=== PATIENT | female | born 2000 | race Two or more races ===

== ENCOUNTER 2024-11-28 15:49 | Emergency (ER) | payer MEDICAID, SELFPAY ==
[2024-11-28 16:43] VITALS: BP 130/83; PULSE 95; RESP 20; TEMP 38.2; O2SAT 100; BMI 44.4
--- NOTE | 2024-11-28 17:01 | EDNOTE_ITS ---
ED Fever RME/HPI General Chief Complaint: Fever Stated Complaint: Fever, sore throat, right ear pain X 2 days Time Seen by Provider: 11/28/24 16:45 Arrival date/time: 11/28/24 15:49 This is a 24-year-old female that comes in with complaints of throat pain and bilateral ear pain. Patient has a fever today. Patient denies any other symptoms. Patient denies any past medical history. Related Data Previous Rx's ?Medication ?Instructions ?Recorded amoxicillin 875 mg-potassium 1 tab PO Q12H #14 tabs clavulanate 125 mg tablet ibuprofen 800 mg tablet 800 mg PO Q6H PRN pain #14 t abs 11/28/24 Allergies Allergy/AdvReac Type Severity Reaction Status Date / Time No Known Allergies Allergy Verified 11/28/24 15:52 Course Orders Category Date Time Status Acetaminophen Tab [Tylenol ES Tab] Med 11/28/24 17:00 Once 1,000 mg PO X1 ONE Amoxicillin/Pot Clav 875 [Augmentin 875] Med 11/28/24 17:01 Once 1 tab PO X1 ONE Ibuprofen Tab [Motrin Tab] Med 11/28/24 17:00 Once 800 mg PO X1 ONE Vital Signs Vital signs: Vital Signs Temperature 100.8 F H 11/28/24 16:43 Pulse Rate 95 11/28/24 16:43 Respiratory Rate 20 11/28/24 16:43 Blood Pressure 130/83 11/28/24 16:43 Pulse Oximetry (%) 100 11/28/24 16:43 Fever MDM Narrative MDM Narrative:: Will treat patient for pharyngitis. Patient given a dose of Tylenol ibuprofen and Augmentin. Patient told to follow-up with primary provider in 1 to 2 days. Come back to the emergency room symptoms change or worsen. Medications / Prescriptions Medication administrations:: Medication Administration History Acetaminophen (Acetaminophen 500 Mg Tablet) 1,000 mg PO X1 ONE Stop: 11/28/24 17:01 Amoxicillin/Clavulanate Potassium (Amoxicillin/Pot Clav 875 Tablet) 1 tab PO X1 ONE Stop: 11/28/24 17:02 Ibuprofen (Ibuprofen Tab 400 Mg Tablet) 800 mg PO X1 ONE Stop: 11/28/24 17:01 Discharge Plan Plan Patient Disposition: HOME (Self Care) Patient condition on transfer: Stable Prescriptions/Referrals Prescriptions/Med Rec: New ibuprofen 800 mg tablet 800 mg PO Q6H PRN (Reason: pain) Qty: 14 0RF amoxicillin-pot clavulanate 875-125 mg tablet 1 tab PO Q12H Qty: 14 0RF Problem List Clinical Impression: Acute bacterial tonsillitis, Fever Patient/Caregiver Discharge Instructions Discharge Activity: activity as tolerated Education Materials: Tonsillitis in Adults Additional Instructions: Follow up with primary provider in 1-2 days. Come back to ED if symptoms change or worsen Print Language: Georgian Stand Alone Forms: [employer] Award Info., Patient Portal Info Letter PA/CHIEF OF SAFETY AND PROTECTION Supervising Physician PA/CHIEF OF SAFETY AND PROTECTION Supervising Physician: konrad
[2024-11-28 17:33] VITALS: TEMP 38.2
[2024-11-28] MEDS: ACETAMINOPHEN 500 MG TABLET 1000 MG PO (17:33)
[2024-11-28] MEDS: AMOXICILLIN/POT CLAV 875 TABLET 1 TAB PO (17:34)
[2024-11-28] MEDS: IBUPROFEN TAB 400 MG TABLET 800 MG PO (17:34)
== END 2024-11-28 17:40 | disposition home or self-care (01) ==
PROVIDERS: Emergency Provider Emergency Medicine
DX: J03.90 Acute tonsillitis, unspecified (principal)
CPT/HCPCS: 99282; A9270

== ENCOUNTER 2025-03-31 18:12 | Emergency (ER) | payer MEDICAID, SELFPAY ==
[2025-03-31 18:50] VITALS: BP 133/87; PULSE 99; RESP 18; TEMP 37.3; O2SAT 98; BMI 38.0
--- NOTE | 2025-03-31 19:00 | XR_ITS ---
Examination: CT abdomen with intravenous contrast CT pelvis with intravenous contrast 2-D coronal reconstructions 2-D sagittal reconstructions Date and time of exam: March 31, 2025, 10:43 p.m INDICATIONS: Abdominal pain blood in the stool today. CTDI: vol (mGy) 15.9 DLP: (mGycm) 820 Technique: Multiple axial sections of the abdomen and pelvis have been obtained. 64 slice high-resolution scanner used. 3 mm axial sections have been obtained, post intravenous injection 60 cc [id number] 2-D sagittal, coronal reconstructions obtained. Low dose protocols were performed. One or more of the following dose reduction techniques were used; automated exposure control, adjustment of the mA and/or KV according to patient size, use of iterative reconstruction technique. Findings: No focal liver or splenic lesions Gallstones No gallbladder wall thickening No pancreatic or adrenal mass No renal or ureteral calculi, no hydronephrosis Aorta normal size No bowel obstruction No pericecal inflammatory change No pelvic mass Urinary bladder intact The osseous structures are intact Normal appendix IMPRESSION: Cholelithiasis, negative for cholecystitis Negative for pancreatitis No renal or ureteral calculi, no hydronephrosis Normal appendix No bowel obstruction diverticulitis or free air
--- NOTE | 2025-03-31 19:01 | EDNOTE_ITS ---
Nausea/Vomit./Diarrhea-RME/HPI General Chief complaint: Abdominal Pain Stated complaint: ABD PAIN, VOMITING, BLOOD IN STOOL, SHAKY Time Seen by Provider: 03/31/25 18:42 Source: patient, RN notes reviewed and old records reviewed Arrival date/time: 03/31/25 18:12 Mode of arrival: ambulatory Limitations: no limitations RME / HPI RME / HPI Narrative: 24yof presents to ED for nausea, vomiting and diarrhea that initiated today. Patient reports minimal bright red blood per rectum after multiple episodes of diarrhea. She c/o LLQ abdominal pain. No fever, flank pain or urinary symptoms reported. 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 Previous Rx's ?Medication ?Instructions ?Recorded amoxicillin 875 mg-potassium 1 tab PO Q12H #14 tabs clavulanate 125 mg tablet ibuprofen 800 mg tablet 800 mg PO Q6H PRN pain #14 t abs 11/28/24 Lactobacillus acidoph-L.bulgaricus 1 tab PO QDAY #30 t abs 04/01/25 1 million cell tablet (Floranex) acetaminophen 500 mg tablet 1,000 mg (2 x 500 mg) PO Q 6H PRN 04/01/25 (Tylenol Extra Strength) pain #30 tabs dicyclomine 20 mg tablet 20 mg PO Q6HR PRN abdominal pain 04/01/25 #30 tabs ibuprofen 600 mg tablet 600 mg PO Q6H PRN pain #30 t abs 04/01/25 ondansetron 4 mg disintegrating 4 mg PO Q6H PRN nausea and 04/01/25 tablet vomiting #10 tabs Allergies Allergy/AdvReac Type Severity Reaction Status Date / Time No Known Allergies Allergy Verified 03/31/25 18:15 Review of Systems Review of Systems Systems Reviewed: All systems reviewed, normal except as documented Constitutional Constitutional: Denies chills and Denies fever(s) Gastrointestinal Gastrointestinal: Reports abdominal pain, Reports diarrhea, Reports hematochezia, Reports nausea and Reports vomiting Genitourinary Genitourinary: Denies dysuria, Denies flank pain and Denies hematuria Past Medical History Past Medical History GASTROINTESTINAL: Positive Obesity Surgical History OTHER SURGICAL HX: Denies past surgical history Social History SMOKING STATUS: Never smoker SUBSTANCE USE: does not use ALCOHOL: Current (Social) ED Exam General Limitations: Present no limitations General appearance: Present alert, in no apparent distress and obese Head Head exam: Present atraumatic and normocephalic Eye Eye exam: Present normal appearance, PERRL and EOMI ENT ENT exam: Present mucous membranes dry (Mild) Neck Neck exam: Present normal inspection and full ROM Chest Chest inspection: Present normal inspection and symmetric chest wall rise Respiratory Respiratory exam: Present normal lung sounds bilaterally; Absent respiratory distress Cardiovascular Cardiovascular exam: Present regular rate and normal rhythm Abdominal Exam Abdominal exam: Present soft and tenderness (LLQ, mild); Absent distention, guarding or rebound Extremities Exam Extremities exam: Present normal inspection and full ROM Back Exam Back exam: Absent CVA tenderness (R) or CVA tenderness (L) Neurological Exam Neurological exam: Present alert and oriented X3 Psychiatric Psychiatric exam: Present normal affect and normal mood Skin Skin exam: Present warm, dry, intact and normal color Course Quality Measures none Orders Category Date Time Status CT Screening NOW Care 03/31/25 19:01 Completed IV [Insert IV] NOW Care 03/31/25 21:[address] abdomen pelvis w con Stat Exams 03/31/25 19:00 Completed CBC Stat Lab 03/31/25 19:36 Completed CMP [Comprehensive Metabolic Panel] Stat Lab 03/31/25 19:36 Completed HCG Qualitative,Urine Stat Lab 03/31/25 20:40 Completed Lipase Stat Lab 03/31/25 19:36 Completed UA [Urinalysis] Stat Lab 03/31/25 20:40 Completed HYDROcodone*/APAP 7.5/325 [[place] 7.5/325] Med 03/31/25 19:00 Discontinued 1 tab PO X1 ONE Ondansetron Odt [Zofran Odt] Med 03/31/25 19:00 Discontinued 4 mg PO X1 ONE Vital Signs Vital signs: Vital Signs Temperature 99.1 F 03/31/25 18:50 Pulse Rate 99 03/31/25 18:50 Respiratory Rate 18 03/31/25 18:50 Blood Pressure 133/87 H 03/31/25 18:50 Pulse Oximetry (%) 98 03/31/25 18:50 Oxygen Delivery Method Room Air 03/31/25 18:50 Nausea/Vomiting/Diarrhea MDM Narrative MDM Narrative:: 24yof presents to ED for nausea, vomiting and diarrhea that initiated today. Patient reports minimal bright red blood per rectum after multiple episodes of diarrhea. She c/o LLQ abdominal pain. No fever, flank pain or urinary symptoms reported. 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 She is feeling better, symptoms improved, tolerating po. CT negative for acute intra-abdominal pathology. No evidence of diverticulitis, bowel perf, appendicitis, pyelonephritis, colitis. Incidental finding of cholelithiasis wo cholecystitis, however, patient denies RUQ pain. Patient is non-toxic appearing, afebrile, vitals are stable. Non-surgical abdomen on exam. In setting of leukocytosis (wbc 24) with left shift, recommended return to ED within next 12-24 hours for repeat CBC and exam. Leukocytosis may be 2/2 acute stress response (recent n/v/d) and dehydration. Patient is comfortable with plan of care and DC home. Encouraged adequate fluids, symptomatic treatment prn. Stable for discharge, RTED precautions given Patient data External records reviewed:: [facility] previous records (11/28/2024 ED visit for tonsillitis) Clinical information provided by:: patient Social determinants that could affect healthcare access:: other (specify) (Poor access to healthcare) Patient has the following chronic illnesses:: Obesity How is presenting disease/condition affected by chronic disease/condition?: uneffected by Evaluation data The following diagnostics were reviewed and interpreted by me:: lab results and radiology exam(s) Lab and/or radiology exams considered but not ordered:: None Interpretation Summary: Leukocytosis with left shift No anemia No UGO No UTI CT abd/pelvis: IMPRESSION: Cholelithiasis, negative for cholecystitis Negative for pancreatitis No renal or ureteral calculi, no hydronephrosis Normal appendix No bowel obstruction diverticulitis or free air Dictated By: Angel Ho MD Medications / Prescriptions Medications / Prescriptions considered but not ordered:: No antibiotics recommended at this time Medication administrations:: Medication Administration History Discontinued Medications Hydrocodone Bitart/Acetaminophen (Hydrocodone/[place] 7.5/325 Tablet) 1 tab PO X1 ONE Stop: 03/31/25 19:01 Last Admin: 03/31/25 20:25 Dose: 1 tab Documented By: Ondansetron HCl (Ondansetron Odt 4 Mg Tabrap) 4 mg PO X1 ONE; Protocol Stop: 03/31/25 19:01 Last Admin: 03/31/25 20:25 Dose: 4 mg Documented By: Above medications administered in ED Consultations Consultation(s) initiated? (list below): No Diagnosis Nausea Differential Diagnosis: other (Gastroenteritis, food poisoning, colitis, diverticulitis, appendicitis, UTI, pyelonephritis, renal colic) Most likely diagnosis given after review of the tests above:: Gastroenteritis Admission Indicated Admission indicated?: not indicated Admission Request Was there a request for admission?: No Disposition Plan Disposition Plan: Discharge Discharge Attestation Discharge Attestation: The patient and all family members were given an opportunity to ask questions and understood the discharge instructions. Discharge instructions specifically effects, indications for sooner follow up or return to the emergency department, and the expected course of current diagnosis. Patient condition: Stable Discharge Plan Plan Patient Disposition: HOME (Self Care) Patient condition on transfer: Stable Prescriptions/Referrals Prescriptions/Med Rec: New ibuprofen 600 mg tablet 600 mg PO Q6H PRN (Reason: pain) Qty: 30 0RF acetaminophen [Tylenol Extra Strength] 500 mg tablet 1,000 mg PO Q6H PRN (Reason: pain) Qty: 30 0RF dicyclomine 20 mg tablet 20 mg PO Q6HR PRN (Reason: abdominal pain) Qty: 30 0RF ondansetron 4 mg tablet,disintegrating 4 mg PO Q6H PRN (Reason: nausea and vomiting) Qty: 10 0RF Lactobacillus acidoph-L.bulgar [Floranex] 1 million cell tablet 1 tab PO QDAY Qty: 30 0RF No Action ibuprofen 800 mg tablet 800 mg PO Q6H PRN (Reason: pain) Qty: 14 0RF amoxicillin-pot clavulanate 875-125 mg tablet 1 tab PO Q12H Qty: 14 0RF Referrals: No Primary/Family,Physician [Primary Care Provider] - In 1 week Problem List Clinical Impression: Nausea vomiting and diarrhea, Left lower quadrant abdominal pain Patient/Caregiver Discharge Instructions Education Materials: Self-Care for Vomiting and Diarrhea Additional Instructions: Make sure to stay hydrated and drink plenty of fluids. Return to ED in 12-24 hours for reevaluation if symptoms persist or worsen Print Language: Belarusian Stand Alone Forms: Ana Award Info., Patient Portal Info Letter PA/BATTERBOARD SETTER Supervising Physician PA/BATTERBOARD SETTER Supervising Physician: Jordan
[2025-03-31 20:09] LABS: Basophils # (Auto) 0.1 Thou/mm3 (0.0-0.2); Basophils % (Auto) 0 % (0-2.5); Eosinophils # (Auto) 0.1 Thou/mm3 (0.0-0.5); Eosinophils % (Auto) 0 % (0-10); Hematocrit 35.7 % (36.0-46.0); Hemoglobin 12.3 g/dL (12.0-16.0); Immature Granulocytes Auto 0.19 Thou/mm3 (0.00-0.00); Lymphocytes # (Auto) 0.5 Thou/mm3 (1.0-4.8); Lymphocytes % (Auto) 2 % (10-50); Mean Corpuscular HGB Conc 34.5 g/dl (31.0-37.0); Mean Corpuscular Hemoglobin 28.8 pg (25.0-35.0); Mean Corpuscular Volume 84 fL (80-100); Monocytes # (Auto) 1.1 Thou/mm3 (0.0-0.8); Monocytes % (Auto) 5 % (0-12); Neutrophils # (Auto) 22.5 Thou/mm3 (1.8-7.7); Neutrophils % (Auto) 92 % (37-80); Nucleated Red Blood Cell # 0.00 Thou/mm3 (0.00-0.00); Nucleated Red Blood Cell % 0 /100 WBC (0); Platelet Count 319 Thou/mm3 (140-440); RDW Standard Deviation 39.2 fL (36.4-46.3); Red Blood Count 4.27 Miln/mm3 (4.00-5.20); White Blood Count 24.5 Thou/mm3 (3.6-11.0)
[2025-03-31] MEDS: ONDANSETRON ODT 4 MG TABRAP PO (20:25)
[2025-03-31] MEDS: HYDROcodone/APAP 7.5/325 TABLET 1 TAB PO (20:25)
[2025-03-31 20:38] LABS: Alanine Aminotransferase 31 U/L (10-49); Albumin, Serum 4.6 gm/dL (3.5-5.0); Albumin/Globulin Ratio 1.8 (1.2-2.2); Alkaline Phosphatase 80 U/L (46-116); Anion Gap 10 (7-16); Aspartate Amino Transferase 26 U/L (0-34); BUN/Creatinine Ratio 10 Ratio (12-20); Bilirubin,Total 1.0 mg/dL (0.3-1.2); Blood Urea Nitrogen 6 mg/dL (9-23); Calcium 9.3 mg/dL (8.3-10.6); Calcium (Corrected) 9.3 mg/dL (8.5-10.1); Carbon Dioxide 23.0 mMol/L (20.0-31.0); Chloride 106 mMol/L (98-107); Creatinine (Component) 0.6 mg/dL (0.6-1.3); Estimated Creatinine Clearance 158.0 mL/min (>60); Globulin 2.5 gm/dL (2.3-3.5); Glucose 96 mg/dL (74-106); Lipase 23 U/L (12-53); Osmolality,Calculated 275 (275-295); Potassium 3.5 mMol/L (3.4-5.1); Sodium 139 mMol/L (136-145); Total Protein 7.1 gm/dL (5.7-8.2); eGFR > 60 See Note
[2025-03-31 20:50] LABS: Collection Type, Urine Clean Catch
[2025-03-31 20:56] LABS: HCG Qualitative,Urine Negative
[2025-03-31 20:59] LABS: Amorphous Crystals,Urine Present (Absent); Bacteria,Urine Rare; Bilirubin,Urine Negative (Negative); Blood,Urine Negative (Negative); Clarity,Urine Turbid (Clear/Hazy); Color,Urine Yellow (Lt Yel-Yel); Glucose, Urine Negative (Negative); Ketones,Urine 1+ (Negative); Leukocyte Esterase,Urine Positive (Negative); Nitrite,Urine Negative (Negative); PH,Urine 6.5 (5.0-7.0); Protein,Urine 1+ (Neg - Trace); RBC,Urine 3 /hpf (0-3); Specific Gravity,Urine 1.030 (1.001-1.035); Squamous Epithelial Cell,Urine 11 /hpf (0-5); Urobilinogen,Urine 3.0 mg/dL (0.0-1.0); WBC,Urine 8 /hpf (0-5)
[2025-04-01 00:04] VITALS: BP 118/78; PULSE 73; RESP 16; TEMP 36.7; O2SAT 99
== END 2025-04-01 00:12 | disposition home or self-care (01) ==
PROVIDERS: Physician Assistant; Emergency Provider Emergency Medicine
DX: K80.20 Calculus of gallbladder without cholecystitis without obstruction (principal)
CPT/HCPCS: 36415; 74177; 80053; 81001; 81025; 83690; 85025; 99283; A4649; Q0162; Q9967; A9270